=== PATIENT | male | born 1995 | race Caucasian/White ===

== ENCOUNTER 2016-08-21 05:38 | Day surgery (SDC) | payer BC, OTHER ==
[~2016-08-21] VITALS: Ht 185.4 cm; Wt 81.6 kg
[~2016-08-21 05:38] MED LIST: ADVIL200 MG PO; ATIVAN0.5 MG PO; IRON325 MG PO; LORATADINE10 M2 PO; NORCO 5/3251 TABLET PO; PROBIOTIC1 EAC1 PO; PROCHLORPERAZIN10 MG PO; RANITIDINE HCL75 MG PO
[2016-08-21 06:36] VITALS: BP 106/55
[2016-08-21 09:16] VITALS: BP 133/72
== END 2016-08-21 09:41 | disposition home or self-care (01) ==
LOC: SDC 05:38
PROC: 07B60ZX Excision of Left Axillary Lymphatic, Open Approach, Diagnostic (ICD-10-PCS; principal; 2016-08-21)
DX: R59.1 Generalized enlarged lymph nodes (principal); C81.94 Hodgkin lymphoma, unspecified, lymph nodes of axilla and upper limb; K21.9 Gastro-esophageal reflux disease without esophagitis; Z92.21 Personal history of antineoplastic chemotherapy; Z80.1 Family history of malignant neoplasm of trachea, bronchus and lung; Z83.3 Family history of diabetes mellitus; Z82.49 Family history of ischemic heart disease and other diseases of the circulatory system; Z84.89 Family history of other specified conditions
CPT/HCPCS: 88305; 88312; J0690; J2250; J3010

== ENCOUNTER → 2016-09-17 | Outpatient (CLI) | payer BC, OTHER | END | disposition home or self-care (01) | LOC: AMB 13:30 | PROC: 0JPT0XZ Removal of Tunneled Vascular Access Device from Trunk Subcutaneous Tissue and Fascia, Open Approach (ICD-10-PCS; principal; 2016-09-17) | DX: Z45.1 Encounter for adjustment and management of infusion pump (principal); Z85.9 Personal history of malignant neoplasm, unspecified; Z92.21 Personal history of antineoplastic chemotherapy ==

== ENCOUNTER 2017-01-09 20:23 | Emergency (ER) | payer BC, OTHER ==
[~2017-01-09] VITALS: Ht 182.9 cm; Wt 81.8 kg
[2017-01-09 20:47] LABS: POINT-OF-CARE METER ID UU13113778
[2017-01-09 20:51] LABS: HEMATOCRIT 39.4 % (38.0-50.0); MCH 28.9 PG (29.0-34.0); MCHC 33.8 G/DL (30.0-36.0); MCV 85.5 FL (86-99); MEAN PLAT.VOLUME 9.5 uM^3 (9.0-12.4); PLATELET COUNT 203 K/uL (156-360); RBC DIS.WIDTH-CV 12.6 % (11.8-14.6); RED BLOOD COUNT 4.61 M/uL (4.00-5.50); WHITE BLOOD COUNT 4.6 K/uL (4.1-10.2)
[2017-01-09 21:02] LABS: CHLORIDE 107 mEq/L (99-109); POTASSIUM 3.8 mEq/L (3.7-5.4); SODIUM 140 mEq/L (136-147)
[2017-01-09 21:04] LABS: GLUCOSE 104 mg/dL (70-99)
[2017-01-09 21:05] LABS: ANION GAP 7 MEQ/L (2-14)
[2017-01-09 21:06] LABS: TOTAL BILIRUBIN 0.5 mg/dL (0.0-1.0)
[2017-01-09 21:07] LABS: ALKALINE PHOSPHATASE 44 IU/L (3-129)
[2017-01-09 21:08] LABS: GFR ESTIMATE (CALCULATED) > 59 mL/min/
[2017-01-09 21:09] LABS: UREA NITROGEN (BUN) 16 mg/dL (9-23)
[2017-01-09 21:11] LABS: LIPASE 15 U/L (1.0-51.0)
[2017-01-09 21:53] LABS: ADD MIUA? NO; BILIRUBIN NEGATIVE; BLOOD NEGATIVE; COLOR STRAW ((YELLOW)); GLUCOSE (STRIP) NEGATIVE; KETONES NEGATIVE; LEUKOCYTES NEGATIVE; NITRITE NEGATIVE; PROTEIN (STRIP) NEGATIVE; UCUL ADDED? NO; UROBILINOGEN 0.2 MG/DL (0.2-1.0)
[2017-01-09 23:36] VITALS: BP 122/71
== END 2017-01-09 23:38 | disposition home or self-care (01) ==
LOC: EME 20:23
DX: R42 Dizziness and giddiness (principal); R11.0 Nausea; R51 Headache; R53.1 Weakness; Z85.71 Personal history of Hodgkin lymphoma
CPT/HCPCS: 70450; 80053; 81003; 82948; 83690; 85027; 93005; 99281; 99285